=== PATIENT | male | born 1945 | race Caucasian/White ===

== ENCOUNTER 2016-12-05 13:34 | Outpatient (CLI) | payer MEDICARE ==
[2016-12-05 14:58] LABS: PSA-Symptomatic (DIAGNOSTIC) 0.06 ng/mL (0-4.0)
[2016-12-06 18:07] LABS: CEA, Serum 7.2 ng/mL (< or = 5.0)
== END 2016-12-05 13:35 | disposition home or self-care (01) ==
LOC: NAV LAB 13:34
PROVIDERS: ATTEND Radiology Radiation Oncology
DX: C61 Malignant neoplasm of prostate (principal); C18.7 Malignant neoplasm of sigmoid colon
CPT/HCPCS: 36415; 82378; 84153

== ENCOUNTER 2017-02-25 14:52 | Outpatient (CLI) | payer MEDICARE | END 2017-02-25 14:53 | disposition home or self-care (01) | LOC: NAV LAB 14:52 | PROVIDERS: ATTEND Radiology Therapeutic Radiology | DX: C61 Malignant neoplasm of prostate (principal) | CPT/HCPCS: 36415; 84153 ==

== ENCOUNTER 2017-03-21 14:48 | Outpatient (CLI) | payer MEDICARE ==
[2017-03-21 15:04] LABS: Hemoglobin 14.6 g/dL (14.0-18.0); Mean Corpuscular HGB CONC 32.6 g/dL (32.0-36.0); Mean Corpuscular Hemoglobin 28.6 pg (27.0-31.0); Mean Corpuscular Volume 87.7 fl (80.0-94.0); Mean Platelet Volume 7.7 fL (7.4-10.4); Platelet Count 154 thou/uL (130-400); RBC Distribution Width 12.7 % (11.5-14.5); Red Blood Cell (RBC) Count 5.09 mill/uL (4.70-6.10); White Blood Cell (WBC) Count 8.2 thou/uL (4.8-10.8)
== END 2017-03-21 14:49 | disposition home or self-care (01) ==
LOC: NAV LAB 14:48
PROVIDERS: ATTEND Internal Medicine
DX: K62.5 Hemorrhage of anus and rectum (principal)
CPT/HCPCS: 85027

== ENCOUNTER 2017-05-01 10:57 | Outpatient (CLI) | payer MEDICARE ==
[2017-05-01 11:18] LABS: #Basophils 0.1 thou/uL (0.0-0.2); #Eosinphils 0.1 thou/uL (0.0-0.7); #Lymphocytes 0.8 thou/uL (1.20-3.40); #Monocytes 0.5 thou/uL (0.11-0.59); #Neutrophils 3.8 thou/uL (1.40-6.50); %Eosinophils 2.3 % (0.0-10.0); %Lymphocytes 15.6 % (21.0-51.0); %Monocytes 9.4 % (0.0-10.0); %Neutrophils 71.7 % (42.0-75.0); Hemoglobin 12.7 g/dL (14.0-18.0); Mean Corpuscular HGB CONC 31.8 g/dL (32.0-36.0); Mean Corpuscular Hemoglobin 28.7 pg (27.0-31.0); Mean Corpuscular Volume 90.2 fl (80.0-94.0); Mean Platelet Volume 6.7 fL (7.4-10.4); Platelet Count 178 thou/uL (130-400); RBC Distribution Width 14.1 % (11.5-14.5); Red Blood Cell (RBC) Count 4.41 mill/uL (4.70-6.10); White Blood Cell (WBC) Count 5.4 thou/uL (4.8-10.8)
[2017-05-01 18:12] LABS: Hep C IgG Ab Non-Reactive (NonReactive)
== END 2017-05-01 10:58 | disposition home or self-care (01) ==
LOC: NAV LAB 10:57
PROVIDERS: ATTEND Internal Medicine
DX: Z11.59 Encounter for screening for other viral diseases (principal); K55.21 Angiodysplasia of colon with hemorrhage
CPT/HCPCS: 36415; 85025; 86803

== ENCOUNTER 2019-07-15 11:54 | Outpatient (CLI) | payer MEDICARE, OTHER ==
--- NOTE | 2019-07-15 12:05 | RAD ---
XR Chest Pa Lat STANDARD History: Chronic cough Comparison: None. Findings: Heart size mildly enlarged. Increased extra pleural fat along the left lateral hemithorax. No pneumothorax. Dual-lead pacer is in good position. Impression: Chronic findings. No acute intrathoracic abnormality.
== END 2019-07-15 11:55 | disposition home or self-care (01) ==
LOC: NAV RAD 11:54
PROVIDERS: ATTEND Family Medicine
DX: R05 Cough (principal)
CPT/HCPCS: 71046

== ENCOUNTER 2021-08-22 10:18 | Outpatient (CLI) | payer MEDICARE, OTHER | END 2021-08-22 10:19 | disposition home or self-care (01) | LOC: NAV RAD 10:18 | PROVIDERS: ATTEND Family Medicine | DX: J20.9 Acute bronchitis, unspecified (principal) | CPT/HCPCS: 71046 ==

== ENCOUNTER 2022-03-21 15:06 | Outpatient (CLI) | payer MEDICARE | END 2022-03-21 15:07 | disposition home or self-care (01) | LOC: NAV LAB 15:06 | PROVIDERS: ATTEND Internal Medicine Hematology & Oncology | DX: C61 Malignant neoplasm of prostate (principal) | CPT/HCPCS: 36415; 84153 ==

== ENCOUNTER 2024-08-30 15:22 | Emergency (ER) | payer MEDICARE, OTHER ==
[2024-08-30 16:34] LABS: Clarity Bloody (Clear)
[2024-08-30 16:35] LABS: Bilirubin Unable to Interpret (Negative); Blood, Urine Unable to Interpret (Negative); Glucose, Urine (Dipstick) Unable to Interpret mg/dL (Negative); Ketone, Urine Unable to Interpret mg/dL (Negative); Leukocyte Unable to Interpret (Negative); Nitrite Unable to Interpret (Negative); Protein, Urine (Dipstick) Unable to Interpret mg/dL (Neg-Trace); Urobilinogen UNABLE TO INTERPRET mg/dL (Less than 2)
[2024-08-30 16:37] LABS: RBC/HPF Greater than 50 HPF (0-3)
[2024-08-30 16:38] LABS: CAUTI Indications for Culture Acute Hematuria
== END 2024-08-30 16:56 | disposition home or self-care (01) ==
LOC: NAV ERS 15:22
DX: R33.9 Retention of urine, unspecified (principal); R31.0 Gross hematuria; R03.0 Elevated blood-pressure reading, without diagnosis of hypertension; I10 Essential (primary) hypertension
CPT/HCPCS: 81001

== ENCOUNTER 2024-08-30 20:19 | Emergency (ER) | payer MEDICARE ==
[2024-08-30] MEDS ORDERED: cloNIDine 0.1 MG TAB ONE (22:15)
[2024-08-30] MEDS ORDERED: Morphine 4 MG/ML VIAL ONE (22:15)
[2024-08-30] MEDS ORDERED: Ondansetron PF 4 MG/2 ML Vial ONE (22:16)
[2024-08-30] MEDS ORDERED: Tamsulosin HCl 0.4 MG CAP ONE (22:16)
[2024-08-30 22:18] LABS: #Basophils 0.1 thou/uL (0.0-0.2); #Eosinophils 0.3 thou/uL (0.0-0.7); #Lymphocytes 1.6 thou/uL (1.20-3.40); #Neutrophils 5.9 thou/uL (1.40-6.50); %Eosinophils 3.9 % (0.0-10.0); %Lymphocytes 17.7 % (21.0-51.0); %Neutrophils 66.5 % (42.0-75.0); Hematocrit 40.1 % (42.0-52.0); Hemoglobin 13.3 g/dL (14.0-18.0); Mean Corpuscular Hemoglobin 28.8 pg (27.0-31.0); Mean Corpuscular Volume 87.1 fl (78.0-98.0); Mean Platelet Volume 7.4 fL (7.4-10.4); Platelet Count 199 10x3/uL (130-400); RBC Distribution Width 12.8 % (11.5-14.5); Red Blood Cell (RBC) Count 4.61 mill/uL (4.70-6.10); White Blood Cell (WBC) Count 8.9 10x3/uL (4.8-10.8)
[2024-08-30 22:27] LABS: Prothrombin Time 12.7 sec (12.0-14.7)
[2024-08-30 22:28] LABS: PTT 26.9 sec (22.9-36.1)
[2024-08-30 22:35] LABS: ALT (SGPT) 16 U/L (8-55); AST (SGOT) 17 U/L (5-34); Albumin 3.6 g/dL (3.4-4.8); Alkaline Phosphatase 91 U/L (40-110); Anion Gap 17 mmol/L (10-20); BUN (Urea Nitrogen) 22 mg/dL (8.4-25.7); Bilirubin, Total 0.7 mg/dL (0.2-1.2); Calc. Creatinine Clearance 0 mL/min (70-130); Calcium 9.8 mg/dL (7.8-10.44); Carbon Dioxide 19 mmol/L (23-31); Chloride 103 mmol/L (98-107); Estimated GFR 73; Globulin 3.2 g/dL (2.4-3.5); Glucose 120 mg/dL (83-110); Potassium 4.4 mmol/L (3.5-5.1); Protein, Total 6.8 g/dL (5.8-8.1); Sodium 135 mmol/L (136-145)
[2024-08-30] MEDS ORDERED: fentaNYL 50 mcg/mL 1 mL Vial ONE (22:54)
[2024-08-31] MEDS ORDERED: fentaNYL 50 mcg/mL 1 mL Vial ONE (00:16)
[2024-08-31] MEDS ORDERED: Dicyclomine 20 MG TAB ONE (00:16)
[2024-08-31] MEDS ORDERED: Morphine 2 MG/ML VIAL ONE (00:46)
== END 2024-08-31 01:15 | disposition short-term general hospital (02) ==
LOC: NAV ERS 20:19
DX: R33.9 Retention of urine, unspecified (principal); R31.0 Gross hematuria; I10 Essential (primary) hypertension; Z79.899 Other long term (current) drug therapy
CPT/HCPCS: 80053; 85025; 85610; 85730; J2272 ×2; J2405; J3010 ×2; 51798; 81001; 96374; 96375; 96376